=== PATIENT | male | born 1975 ===

== ENCOUNTER 2021-01-06 04:43 | Outpatient (CLI) | payer OTHER, SELFPAY ==
--- NOTE | 2021-01-06 | DI.US_ITS ---
APPROVED REPORT EXAM: Comprehensive 2D, Doppler, and color-flow Echocardiogram Patient Location: Out-Patient Closer On: Eveline Aviles RDCS (AE) Indications: Ischemic heart disease Other Information Study Quality: Good Conclusion Normal left ventricular wall thickness and chamber size. Estimated ejection fraction is 60%. There ar e no segmental wall motion abnormalities Normal right ventricular size and systolic function Both atria are normal in size There is no significant valvular disease Mildly dilated ascending aorta measuring 3.95 centimeters Wall motion Left Ventricle The left ventricle is normal size. The left ventricular systolic function is normal. The left ventric ular ejection fraction is within the normal range. There is normal left ventricular wall thickness. T here is normal LV segmental wall motion. There is no ventricular septal defect visualized. LVEF is 60 %. Right Ventricle The right ventricle is normal size. The right ventricular systolic function is normal. The RVSP is 20 .7 mmHg. Atria The left atrium size is normal. The right atrium size is normal. The interatrial septum is intact wit h no evidence for an atrial septal defect. Aortic Valve The aortic valve is normal in structure. Aortic valve is trileaflet. There is no aortic valvular sten osis. No aortic regurgitation is present. Mitral Valve The mitral valve is normal in structure. No evidence of mitral valve stenosis. Trace to mild mitral r egurgitation. Tricuspid Valve The tricuspid valve is normal in structure. There is no tricuspid valve stenosis. Trace tricuspid reg urgitation. Pulmonic Valve The pulmonary valve is normal in structure. There is no pulmonic valvular stenosis. Trace pulmonic re gurgitation. Great Vessels The aortic root is normal in size. The ascending aorta is mildly dilated. Aortic arch is normal in ca liber. IVC is normal in size and collapses >50% with inspiration. Pericardium There is no pericardial effusion. 2D Dimensions IVSD d PLAX 1.04 cm M: 0.6-1.2 LV Vol A2C d MOD 135.2 mL LVPW d PLAX 1.05 cm M: 0.6 - 1.2 LV Vol A4C d MOD 136.8 mL LVID d PLAX 4.75 cm M: 4.2 - 5.8 LA vol/ BSA A2C s A-L 18.1 mL/m2 LVDs 3.30 cm M: 2.5 - 4.0 LA vol/ BSA A4C s A-L 19.5 mL/m2 Ao Root d 3.54 cm M: 3.1 - 3.7 LA Vol/ BSA Biplane s A-L 19.4 mL/m2 RA Area A4C 15.19 cm2 LA Area A4C s MOD 17.29 cm2 RA Vol/ BSA A4C s A-L 17.1 mL/m2 LA Area A2C s MOD 16.08 cm2 Ao Asc Diam d 3.95 cm M: 2.6 - 3.4 LV EF A4C MOD 60.7 % LV EF Teichholz 56.7 % LV EF A2C MOD 58.7 % LVEF (Nagy's) 60.65 % M: 52 - 72 LV EF Biplane MOD 60.7 % LV Volume 100.67 mL M: 62 - 150 SV 84.83 mL LV Volume Index 44.34 mL/m2 M: 34 - 74 SV Index 37.28 mL/m2 LV Vol Biplane MOD 139.9 mL FS 29.65 % M-Mode TAPSE 2.20 cm (M/F) >1.7 LV Diastology MV E' medial 0.078 (>0.07 m/s) E/A Ratio 1.5 LV E/e MED 10.15 (<14) MV E Vmax 0.80 (0.4-1.3 m/s) MV E' lateral 0.149 (>0.1 m/s) MV A Vmax 0.55 (0.4-1.3 m/s) LV E/e LAT 5.30 (<14) MV E/A Ratio 1.44 MV E/E' medial 10.17 MV E/E' lateral 5.33 Aortic Valve LVOT Area 3.97 cm2 AoV Area Vmax 2.90 cm2 LVOT Vmax 0.89 m/s AoV Area/ BSA (Vmax) 1.28 cm2/m2 LVOT Mean Basim. 0.56 m/s SAMY Mean Basim. 2.41 cm2 LVOT Peak Grad 3.2 mmHg SAMY Mean Basim. Index 1.06 cm2/m2 LVOT Mean Grad 1.5 mmHg LVOT VTI 0.197 m LVOT Diam s 2.20 cm AoV Vmax 1.22 m/s Velocity Ratio 0.72 AoV Mean Basim. 0.92 m/s AoV Peak Grad 5.9 mmHg LVOT SV 77.97 mL AoV Mean Grad 3.6 mmHg AoV VTI 0.244 m AoV Area VTI 3.20 cm2 AoV Area/ BSA (VTI) 1.41 cm/m2 Mitral Valve MV DT 175 (160-240 msec) MV PHT 51 msec MV Area PHT 4.32 cm2 MV VTI 0.229 m MV VTI Annulus 0.239 m MV Area VTI 3.56 (4.0-6.0 cm2) Pulmonary Valve PV Vmax 1.21 (0.5-1.5 m/s) RVOT Peak Gr. 1.58 mmHg PV Peak Grad 5.8 mmHg RVOT Mean Gr. 0.90 mmHg PV Mean Grad 2.7 mmHg RVOT VTI 0.135 m PV VTI 0.199 m RVOT Vmax 0.63 m/s Tricuspid Valve TR Peak Grad 17.6 mmHg TR Vmax 2.10 m/s RA Pressure 3.00 mmHg RVSP (TR) 20.7 mmHg
--- NOTE | 2021-01-06 09:00 | DI.RAD_ITS ---
Exam(s) XR ELBOW LT LIMITED EXAM: XR ELBOW LT LIMITED CLINICAL HISTORY: LT ELBOW FX,[id number]. TECHNIQUE: 2D digital imaging was performed. COMPARISON: No exams were available for comparison FINDINGS: BONES: There is a defect in the articular surface of the left radial head which may represent old fra cture deformity. No other fracture is identified. No bony destructive lesion is seen. JOINTS: The elbow is normally aligned. No joint effusion is seen. SOFT TISSUE: Normal. IMPRESSION: DATA REPOSITORY: RADIATION DOSE DELIVERED:
== END 2021-01-06 05:03 ==
PROVIDERS: Visit Provider Orthopaedic Surgery
DX: I25.9 Chronic ischemic heart disease, unspecified (principal); S42.402A Unspecified fracture of lower end of left humerus, initial encounter for closed fracture; X58.XXXA Exposure to other specified factors, initial encounter
CPT/HCPCS: 73070; 93306